=== PATIENT | female | born 1955 | race Caucasian/White ===

== ENCOUNTER → 2020-07-11 00:25 | Outpatient (CLI) | payer MEDICARE, SELFPAY ==
[2020-07-11 18:31] LABS: SARS-CoV-2 RNA PCR Negative
== END ==
PROVIDERS: Visit Provider Internal Medicine Gastroenterology
DX: Z01.812 Encounter for preprocedural laboratory examination (principal); Z20.822 Contact with and (suspected) exposure to COVID-19
CPT/HCPCS: C9803; U0003; U0005

== ENCOUNTER → 2020-07-11 08:33 | Outpatient (CLI) | payer MEDICARE, SELFPAY ==
--- NOTE | ~2020-07-11 | DEXA_ITS ---
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 Exam Date: July 11, 2020 Accession number: [id number] Bone Density: Region BMD T-score Z-score Classification AP Spine (L1-L4) 0.865 -1.7 0.1 Osteopenia Femoral Neck (Left) 0.805 -0.4 1.1 Normal Total Hip (Left) 0.777 -1.4 -0.1 Osteopenia Femoral Neck (Right) 0.702 -1.3 0.2 Osteopenia Total Hip (Right) 0.760 -1.5 -0.3 Osteopenia Total Hip Mean 0.769 -1.5 -0.2 Osteopenia World Health Organization criteria for BMD impression classify patients as: Normal (T-score at or above -1.0), Osteopenia (T-score between -1.0 and -2.5), or Osteoporosis (T-score at or below -2.5). 10-year Fracture Risk(1): Major Osteoporotic Fracture 8.1% Hip Fracture 0.7% Reported Risk Factors: [place] (), Neck BMD=0.702, BMI=31.7 (1) FRAX(R) Version 3.08. Fracture probability calculated for an untreated patient. Fracture probability may be lower if the patient has received treatment. Clinical Information Provided by Patient: Has used the following medications: Vitamin D, Calcium Patient maximum height was 65.5 Menopause Age: 55 No regular weight bearing exercise Does not regularly consume dairy products Drinks caffeinated beverages Onset of menses at age 12 Number of children 2 Missed period for more than 6 months in a row Impression: The patient has low bone mass, based on the Total Spine T-score. The patient has an estimated ten-year risk of hip fracture of 0.7% and an estimated ten-year risk of major fracture of 8.1%, based on the WHO FRAX algorithm. Discussion: BONE DENSITY IS LOW AT ONE OR MORE SKELETAL SITES. This patient's lowest T-score is low at one or more skeletal sites. It meets the World Health Organization's (WHO) criteria for ?low bone mass? (T-score between -1.0 and -2.5). The patient's 10-year risk of fracture as calculated by FRAX is less than the threshold where pharmacological therapy is recommended by the National Osteoporosis Foundation (NOF). However, all treatment decisions require clinical judgment and consideration of individual patient factors, including patient preferences, comorbidities, previous drug use, risk factors not captured in the FRAX model (e.g., frailty, falls, vitamin D deficiency, increased bone turnover, interval significant decline in bone density) and possible under or overestimation of fracture risk by FRAX. The patient should follow a healthful lifestyle (good nutrition with adequate calcium and vitamin D, and appropriate weight-bearing exercise). Follow-Up: Consider repeating this study
--- NOTE | ~2020-07-11 | XR_ITS ---
EXAMINATION: XR hip LT min 2V DATE: 07/11/2020 08:57 INDICATION: Left hip pain TECHNIQUE: Anteroposterior and frog-leg lateral views of the left hip were obtained. COMPARISON: 01/01/2012 FINDINGS: Alignment is normal. No fracture. Interval progression of now severe left hip osteoarthritis with ess entially [id number] apposition at the superior superolateral aspect of the joint space. There is zeng barticular lucency at the humeral head with remodeling of the superolateral aspect of the humeral hea d. Marginal osteophytes about the femoral head and acetabulum. Mild left sacroiliac osteoarthritis. IMPRESSION: 1. Interval progression of now severe left hip osteoarthritis. Reviewed, dictated and finalized at location A.
== END ==
PROVIDERS: PCP Family Medicine; Visit Provider Physician Assistant
DX: M16.12 Unilateral primary osteoarthritis, left hip (principal); Z13.820 Encounter for screening for osteoporosis; M85.88 Other specified disorders of bone density and structure, other site; M85.852 Other specified disorders of bone density and structure, left thigh; M85.851 Other specified disorders of bone density and structure, right thigh
CPT/HCPCS: 73502; 77080

== ENCOUNTER 2020-07-14 04:40 | Day surgery (SDC) | payer MEDICARE, SELFPAY ==
[2020-07-06 11:10] VITALS: BMI 31.5
[2020-07-14 10:24] VITALS: BP 160/110; PULSE 105; RESP 20; TEMP 36.8; O2SAT 97; BMI 31.4
[2020-07-14] MEDS: LACTATED RINGERS 1,000 ML 150 ML IV CONT (10:38)
--- NOTE | 2020-07-14 10:42 | P.PNAN_ITS ---
Anes - Initial Pre Proc Eval Procedure: Operation Date: 07/14/20 11:00 Proposed Procedures p Colonoscopy - Butch Gonzalez MD Date/Time: 07/14/20 10:42 Surgeon: Butch Gonzalez MD Pre Op Diagnosis: Positive Cologuard Patient Data Age: 65 Gender: F Height: 5 ft 5 in Weight: 85.5 kg Last Vital Signs Temp 98.2 F 07/14/20 10:24 Pulse 105 H 07/14/20 10:24 Resp 20 07/14/20 10:24 BP 160/110 H 07/14/20 10:24 Pulse Ox 97 07/14/20 10:24 Allergies Allergy/AdvReac Type Severity Reaction Status Date / Time pergolide Allergy Unknown intolerance Verified 06/06/20 13:44 Home Medications Medication Instructions Recorded Confirmed Type losartan 100 mg tablet 100 mg PO DAILY #90 tablet 06/06/20 07/06/20 Rx levothyroxine 100 mcg capsule 100 mcg PO DAILY #90 tablet 06/08/20 07/14/20 Rx Patient hx anesthesia problems: none Family hx anesthesia problems: none PMFSH Past Medical History Medical History (Updated 07/14/20 @ 10:42 by Ramos Dillon MD) Essential (primary) hypertension Hypothyroidism (acquired) Family History Family History Father Family history of cardiovascular disease Cerebrovascular accident Family history of glaucoma Family history of elevated blood lipids Mother Family history of dementia Family history of glaucoma Family history of rheumatoid arthritis Family history of Alzheimer's disease Sibling Family history of malignant neoplasm Social History Social History (Updated 06/06/20 @ 14:48 by Savanna Valera [facility]) Smoking packs per day: 1 Smoking cigarettes per day: 20.0 Years smoked: 5 Smoking pack-years: 5.00 Smoking status: Former smoker (quit smoking 35 years ago, smoked 5 years in total prior to quitting ) Tobacco type: cigarettes Alcohol intake: current Drinks per week: 2 Substance use type: does not use Living arrangements: with family Gender identity (if verbalized by the patient): Female Spiritual care concerns: No Anes - Eval Final PreProcedure Day of Procedure 07/14/20 10:42 Patient weight: obese Heart: regular rate and rhythm Lungs: clear to auscultation Airway: Mallampati scale class II Neurological: alert and oriented Last oral intake: >/= 8 hours ASA classification: III Emergent: no Anesthetic plan: proceed Anesthesia type and monitoring: general GIVS and standard monitoring Informed Consent: The patient's anesthetic plan and its attendant risks and benefits were discussed with the patient/family/POA. Questions were solicited and answers provided to the satisfaction of the patient/family/POA.
[2020-07-14 10:43] VITALS: BP 169/99
--- NOTE | 2020-07-14 11:03 | PM.HPGS ---
History of Present Illness History of Present Illness Consent: Risks, benefits, and alternatives have been discussed and questions answered. Patient agrees to proceed with procedure. Chief complaint: Positive Cologuard Narrative: Rosetta Christiansen is a 65 year old female referred for colon cancer screening. She had a colo guard testing was positive Review of Systems Review of Systems: All systems reviewed & are unremarkable except as noted in HPI and below PMFSH Past Medical History Medical History Essential (primary) hypertension Hypothyroidism (acquired) Family History Family History Father Family history of cardiovascular disease Cerebrovascular accident Family history of glaucoma Family history of elevated blood lipids Mother Family history of dementia Family history of glaucoma Family history of rheumatoid arthritis Family history of Alzheimer's disease Sibling Family history of malignant neoplasm Social History Social History Smoking packs per day: 1 Smoking cigarettes per day: 20.0 Years smoked: 5 Smoking pack-years: 5.00 Smoking status: Former smoker (quit smoking 35 years ago, smoked 5 years in total prior to quitting ) Tobacco type: cigarettes Alcohol intake: current Drinks per week: 2 Substance use type: does not use Living arrangements: with family Gender identity (if verbalized by the patient): Female Spiritual care concerns: No Meds Home Medications and Allergies Home Medications Medication Instructions Recorded Confirmed Type losartan 100 mg tablet 100 mg PO DAILY #90 tablet 06/06/20 07/06/20 Rx levothyroxine 100 mcg capsule 100 mcg PO DAILY #90 tablet 06/08/20 07/14/20 Rx Allergies Allergy/AdvReac Type Severity Reaction Status Date / Time pergolide Allergy Unknown intolerance Verified 06/06/20 13:44 Vital Signs Vital Signs - 24 hr 07/14/20 10:24 07/14/20 10:43 Temperature 36.8 C Pulse Rate 105 H Respiratory Rate 20 Blood Pressure 160/110 H 169/99 H Pulse Oximetry 97 Exam Const: General: alert Orientation/consciousness: patient oriented x3 Resp: Auscultation: clear to auscultation bilaterally Cardio: Rhythm: regular rhythm GI: GI Palp: Yes Soft to palpation and No Tenderness to palpation present (GI) Neuro: General: patient oriented x3 Assessment and Plan Assessment and plan (1) Colon cancer screening: Code(s): Z12.11 - Encounter for screening for malignant neoplasm of colon Status: Acute Assessment and Plan: Colonoscopy with possible biopsy or polypectomy or cautery or injection of substances.
[2020-07-14] MEDS: SIMETHICONE ORAL SUSPENSION 20 MG/0.3 ML 30 ML BOTTLE 0.6 ML IRRIGATION (11:17)
[2020-07-14 11:26] VITALS: BP 122/76; PULSE 85; RESP 16; O2SAT 97
[2020-07-14 11:36] VITALS: BP 143/93; PULSE 85; RESP 19; O2SAT 97
[2020-07-14 11:46] VITALS: BP 145/91; PULSE 88; RESP 20; O2SAT 99
== END 2020-07-14 12:25 | disposition home or self-care (01) ==
PROVIDERS: PCP Family Medicine; Visit Provider Internal Medicine Gastroenterology
PROC: 0DJD8ZZ Inspection of Lower Intestinal Tract, Via Natural or Artificial Opening Endoscopic (ICD-10-PCS; CPT 45378; principal; 2020-07-14 11:00)
DX: Z12.11 Encounter for screening for malignant neoplasm of colon (principal); D12.3 Benign neoplasm of transverse colon; R19.5 Other fecal abnormalities; I10 Essential (primary) hypertension; E03.9 Hypothyroidism, unspecified; Z87.891 Personal history of nicotine dependence; E66.9 Obesity, unspecified; Z68.31 Body mass index [BMI] 31.0-31.9, adult
CPT/HCPCS: 45380; 88305; J2001; J2704; J7120

== ENCOUNTER 2020-10-10 07:59 | Outpatient (CLI) | payer MEDICARE, SELFPAY ==
--- NOTE | 2020-10-10 09:17 | ECG_ITS ---
Measurements Intervals [place] Rate: 79 P: 39 DC: 169 QRS: -35 QRSD: 91 T: 10 QT: 357 QTc: 409 Interpretive Statements SINUS RHYTHM LEFT AXIS DEVIATION BORDERLINE R WAVE PROGRESSION, ANTERIOR LEADS INCOMPLETE RIGHT BUNDLE BRANCH BLOCK BORDERLINE T WAVE ABNORMALITY- INFERIOR LEADS BASELINE ARTIFACT- I, III, AVR, AVL BORDERLINE ECG Electronically Signed On 10-10-2020 9:38:32 CDT by Herman Olivares D.O.
[2020-10-10 10:27] LABS: Basophils Percent Auto 0.9 % (0.2-1.2); Eosinophils Absolute Auto 0.1 K/mm3 (0-0.3); Eosinophils Percent Auto 3.1 % (0-4.4); Hematocrit 44.3 % (37.0-47.0); Hemoglobin 14.7 g/dL (12.0-15.0); Immature Granulocyte Absolute 0.01 K/mm3 (0.00-0.031); Immature Granulocyte Percent A 0.2 % (0-0.5); Lymphocytes Absolute Auto 1.17 K/mm3 (0.9-3.2); Lymphocytes Percent Auto 26.1 % (18.3-44.2); Mean Corpuscular HGB Conc 33.2 g/dl (32-36); Mean Corpuscular Hemoglobin 32.1 pg (26-34); Mean Corpuscular Volume 96.7 fl (80-100); Mean Platelet Volume 9.6 fl (7.4-10.4); Monocytes Absolute Auto 0.4 K/mm3 (0.1-0.6); Monocytes Percent Auto 8.7 % (2.6-8.5); Neutrophils Absolute Auto 2.7 K/mm3 (1.3-6.7); Platelet Count Result 347 k/mm3 (150-375); Red Blood Count 4.58 M/mm3 (4.2-5.4); Red Cell Distribution Width 12.4 % (11.5-14.5); White Blood Count 4.5 K/mm3 (4.5-10.0)
[2020-10-10 10:42] LABS: Albumin Level 4.5 g/dL (3.5-5.1); Estimated Glomerular Filt Rate > 60; Glucose 96 mg/dL (65-105)
[2020-10-10 11:14] LABS: Urine Cotinine NEGATIVE
[2020-10-10 11:22] LABS: Hemoglobin A1C 5.4 % (<5.7)
== END 2020-10-10 08:00 | disposition home or self-care (01) ==
LOC: ANHSURGERY 08:04
PROVIDERS: PCP Family Medicine; Visit Provider Orthopaedic Surgery
DX: M16.12 Unilateral primary osteoarthritis, left hip (principal); Z01.818 Encounter for other preprocedural examination; I45.10 Unspecified right bundle-branch block
CPT/HCPCS: 80307; 82040; 82565; 82947; 83036; 85025; 86850; 86900; 86901; 87081; 93005

== ENCOUNTER 2020-10-23 00:22 | Day surgery (SDC) | payer MEDICARE, SELFPAY ==
[2020-10-10 08:24] VITALS: BP 148/103; PULSE 75; RESP 18; TEMP 36.4; O2SAT 96
[2020-10-23] VITALS (16 sets, daily range): BP systolic 127–170; BP diastolic 81–105; PULSE 69–97; RESP 10–20; TEMP 36.1–36.8; O2SAT 94–100
--- NOTE | ~2020-10-23 | XR_ITS ---
EXAMINATION: XR surgery orthopedic DATE: 10/23/2020 10:34 INDICATION: Left hip osteoarthritis. Total left hip arthroplasty, anterior approach. TECHNIQUE: A single intraoperative fluoroscopic view of the left hip was obtained. I was not present. Fluoroscopy exposure time was 21 seconds. COMPARISON: Left hip radiographs 10/12/2020 FINDINGS: There is a total left hip arthroplasty in near-anatomic alignment. IMPRESSION: 1. Total left hip arthroplasty in near-anatomic alignment. Reviewed, dictated and finalized at location A.
--- NOTE | ~2020-10-23 | XR_ITS ---
EXAMINATION: XR hip LT min 2V DATE: 10/23/2020 11:12 INDICATION: EXAMINATION: XR hip LT min 2V DATE: 10/23/2020 11:12 INDICATION: Postoperative evaluation following left total hip arthroplasty TECHNIQUE: Anteroposterior and lateral views of the left hip were obtained. COMPARISON: Left hip radiographs dated 10/12/2020 FINDINGS: Interval placement of a left total hip arthroplasty which appears well seated in near anatomic alignm ent. Expected subcutaneous gas in the postoperative bed. No fractures identified. IMPRESSION: 1. Left total hip arthroplasty, negative for postoperative purposes. Reviewed, dictated and finalized at location A.
[2020-10-23] MEDS: ACETAMINOPHEN 500 MG TABLET 1000 MG PO ×3 (06:06→22:52)
[2020-10-23] MEDS: LACTATED RINGERS 1,000 ML 30 ML IV CONT ×2 (06:30→10:56)
[2020-10-23] MEDS: TRANEXAMIC ACID 1,000MG/ISO100 1,000 MG/100 ML BAG 200 MG IVPB (06:42)
--- NOTE | 2020-10-23 06:50 | SUR.PREOP ---
0650-PT AWARE OF POTENTIAL DELAY GOING FROM PACU TO FLOOR ROOM R/T BED/ROOM AVAILABILITY.
--- NOTE | 2020-10-23 07:10 | WPDANESEPPF ---
Anes - Initial Pre Proc Eval Procedure: Operation Date: 10/23/20 07:30 Proposed Procedures p Left Total Hip Arthroplasty, Anterior Approach - Ad Weston MD Date/Time: 10/23/20 07:10 Surgeon: Ad Weston MD Pre Op Diagnosis: OA left hip Patient Data Age: 65 Gender: F Height: 1.66 m Weight: 82 kg Last Vital Signs Temp 36.8 C 10/23/20 06:12 Pulse 95 10/23/20 06:12 Resp 20 10/23/20 06:12 BP 147/97 H 10/23/20 06:12 Pulse Ox 99 10/23/20 06:12 Allergies Allergy/AdvReac Type Severity Reaction Status Date / Time pergolide AdvReac Unknown Nausea Verified 10/23/20 06:07 Home Medications Medication Instructions Recorded Confirmed Type calcium 600 mg PO DAILY 10/10/20 10/23/20 History cholecalciferol (vitamin D3) 25 mcg PO BID 10/10/20 10/23/20 History levothyroxine 88 mcg PO QAM 10/10/20 10/23/20 History losartan 100 mg PO HS 10/10/20 10/23/20 History multivitamin [Multiple Vitamin] 1 tablet PO DAILY 10/10/20 10/23/20 History latanoprost 0.005 % eye drops 1 drp EACH EYE DAILY 10/12/20 10/23/20 History rivaroxaban 10 mg tablet 10 mg PO DAILY #14 tablet 10/12/20 10/23/20 Rx ECG: Date of Service: 10/10/20 Procedure(s): CA 12 lead EKG Accession Number(s): [id number] cc: ~ Measurements Intervals [place] Rate: 79 P: 39 VA: 169 QRS: -35 QRSD: 91 T: 10 QT: 357 QTc: 409 Interpretive Statements SINUS RHYTHM LEFT AXIS DEVIATION BORDERLINE R WAVE PROGRESSION, ANTERIOR LEADS INCOMPLETE RIGHT BUNDLE BRANCH BLOCK BORDERLINE T WAVE ABNORMALITY- INFERIOR LEADS BASELINE ARTIFACT- I, III, AVR, AVL BORDERLINE ECG Electronically Signed On 10-10-2020 9:38:32 CDT by Herman Olivares D.O. Patient hx anesthesia problems: none Family hx anesthesia problems: none PMFSH Past Medical History Medical History Allergies Arthritis Essential (primary) hypertension Hypothyroidism (acquired) Primary osteoarthritis of left hip Surgical History Surgical History History of root canal procedure 2020 for dental abscess Family History Family History Father Family history of cardiovascular disease Cerebrovascular accident Family history of glaucoma Family history of elevated blood lipids Mother Family history of dementia Family history of glaucoma Family history of rheumatoid arthritis Family history of Alzheimer's disease Sibling Family history of malignant neoplasm Social History Social History Smoking packs per day: 1 Smoking cigarettes per day: 20.0 Years smoked: 9 Smoking pack-years: 9.00 Smoking status: Former smoker Tobacco type: cigarettes Smoking end date: 10/13/79 Alcohol intake: current Drinks per week: 2 Alcohol use details: wine Substance use: never Substance use type: does not use Living arrangements: alone Gender identity (if verbalized by the patient): Female Spiritual care concerns: No Anes - Eval Final PreProcedure Day of Procedure 10/23/20 07:10 Patient weight: overweight Heart: regular rate and rhythm Lungs: clear to auscultation and normal air movement Airway: Mallampati scale class II Neurological: alert and oriented Last oral intake: >/= 8 hours ASA classification: II Emergent: no Anesthetic plan: proceed Anesthesia type and monitoring: general ETT Informed Consent: The patient's anesthetic plan and its attendant risks and benefits were discussed with the patient/family/POA. Questions were solicited and answ
--- NOTE | 2020-10-23 07:17 | WPDHPUPDATE1 ---
History and Physical Update Update Date/Time: 10/23/20 07:17 History and Physical has been reviewed, including an updated exam of the patient. There are NO changes in the patient's condition. Risks, benefits, and alternatives have been discussed and questions answered. Patient agrees to proceed with procedure.
[2020-10-23] MEDS: ceFAZolin 2 GM/D5W 50 ML 2 GM/50 ML BAG IVPB ×3 (07:42→23:55)
[2020-10-23] MEDS: BUPIVACAINE/EPINEPHRINE 0.25% 10 ML VIAL 40 ML INFILTRATE (08:25)
[2020-10-23] MEDS: ceFAZolin SODIUM 1 GM VIAL 2 GM IV PUSH (10:18)
--- NOTE | 2020-10-23 11:01 | P.OP_ITS ---
Procedure Note - Detailed Date of Procedure 10/23/20 Pre-op Diagnosis OA left hip Post-op Diagnosis same Procedure Performed left total hip replacement through an anterior approach Surgeon Ad Weston MD [employer] Professor Lion Anesthesia MAC and spinal Indications see H&P Findings see operative note Description of Procedure The patient was identified, proper side identified, and then taken to the operating room. After a spinal anesthetic was administered, she was then transferred over to the [place] table positioning supine in the usual manner for an anterior hip procedure. Positioning was assessed fluoroscopically after which the left hip and thigh was prepped and draped in the usual sterile fashion. 10 cc of the 0.25% Marcaine and epinephrine solution was injected into the zeng bcutaneous tissue over the TFL muscle belly. Longitudinal incision was made over the muscle belly. Subcutaneous tissue was sharply dissected down to the TFL fascia which was incised in line with the fibers the TFL. The TFL was retracted laterally and the rectus femoris medially. The rectus fascia was divided. The branches of the anterior femoral circumflex artery were identified and cauterized allowing for access to the hip capsule. Pericapsular fatty tissue was removed. The capsule was divided in an inverted T-fashion. The neck cut was made one fingerbreadth above the level of the lesser trochanter. Head fragment was removed and the acetabulum cleared of debris. Acetabulum was sequentially reamed under fluoroscopic visualization up to 51 mm. A 52 G7 cup was inserted under fluoroscopic visualization in approximately 40? of abduction and 15? of anteversion following the patient's anatomy. It was further secured with a single screw and then the liner for the size 36 head was placed. The femur was then delivered up into the wound with the appropriate releases. The proximal femur was prepared for the 12 echo micro plasty high offset stem and a trial reduction was undertaken. Overall alignment was assessed fluoroscopically in the AP and lateral views noting it to be satisfactory. Trial components were removed. The wound was irrigated with pulsatile lavage. The real size 12 high offset micro plasty stem was then seated. This construct with a 36, minus three head gave excellent pentecostal of leg lengths and stability so the real 36- three ceramic head was attached to the neck of the femoral component after it had been cleaned and dried. Hip was again reduced and stability assessed, and it was noted to be stable. After final lavage of the wound, the periarticular tissues were injected with an additional 50 cc of the arthroplasty solution. 1 g of tranexamic acid was left in the wound. The capsule was reapproximated with #2 Vicryl suture, the TFL fascia with 0 looped PDS suture, the subcu with two of strata fix in the deeper layers and two of strata fix subcuticular stitch. Tissue adhesive was used for the skin. Sterile dressing was applied. She tolerated the procedure well. She was transferred back to a bed and taken to recovery area in stable condition. There were no known intraoperative complications. Estimated blood loss was 300 cc. One hundred twenty-five given back via Cell Saver. She received perioperative antibiotics.
--- NOTE | 2020-10-23 11:19 | PM.DS ---
DS: Admitting Diagnosis Admitting Diagnosis Admitting Diagnosis: osteoarthritis left hip DS: Discharge Diagnosis Discharge Diagnosis (1) Primary osteoarthritis of left hip: Code(s): M16.12 - Unilateral primary osteoarthritis, left hip Status: Resolved Assessment and Plan: Plan discharge home today with follow-up in two weeks. Instructions reviewed in detail. DS: Summary Hospital Course Reason for hospitalization: Recovery after outpatient procedure. Hospital Course: Following the patient's surgery she was admitted to the floor, began her therapy, made good progress and is being discharged home. Status at Discharge Functional status at discharge: uses cane/walker Overall status at discharge: patient is not back to baseline Time Spent with Patient Time attestation: Total time spent providing and/or coordinating discharge services: Exam Const: General: cooperative, no acute distress and alert Nutritional Appearance: other Orientation/consciousness: patient oriented x3 Limitations: no limitations HENMT: Head: normal to inspection Ears: hearing grossly normal bilaterally Face and sinus: face symmetric Mouth: Yes moist mucous membranes Teeth and gingiva: fair dentition Eyes: Alignment and Position: alignment normal and position normal Sclera: sclerae normal Neck: Neck: normal visual inspection and nontender Chest: Chest palpation & inspection: normal inspection of the chest Resp: Effort & Inspection: normal respiratory effort and able to speak in complete sentences GI: Inspection: other ( Nontender, nondistended) Skin: General skin exam: normal color Rashes: no rashes Neuro: General: patient oriented x3 Cognition (Neuro): normal cognition Speech: normal speech Gait exam (Neuro): Other gait observations present Extrem: General: normal to inspection and other Other: Exam of the left hip wound shows that it is well apposed and dry. Slight bruising noted around the incision with minimal swelling. Neurovascular status left lower extremity unremarkable. Calves negative. Psych: Appearance: grossly normal Mental Status: mental status grossly normal Discharge Plan Discharge Patient Disposition: Home, Self-Care Discharge Instructions: 3 times daily for 20 minutes each time, reclining in bed with ice packs over the incision and a pillow underneath the calf of the affected leg, not under the knee. Your wound is glued so it is okay to get into the shower and get the wound wet in two days. Be sure to read through all the information that came from a my office and the hospital. Most of the answers you will need can be found that material. Call the office with any questions that you cannot find answers to, or concerns you may have. After the Xarelto is completed, start taking one coated 325 mg aspirin daily and do this for four more weeks. Please call [facility] at as soon as possible to verify your follow-up appointment to be seen in 2 weeks. Also, call the office with any orthopedic/surgical related questions prior to follow-up. Be sure to get up and move around several times daily but do not overdo it. Take the arthritis formula Tylenol 650 mg tablet on an 8 hour schedule. A good 8 hour schedule is: 6:00 a.m., 2:00 p.m., 10:00 p.m. you may take the prescribed pain medication along with the Tylenol; it is not to be taken instead of the Tylenol. I would like for you to take the Tylenol on a schedule for 2-3 weeks. Take the Celebrex every 12 hours for one week. It is okay to take this with the Xarelto. Patient Instructions: Pain Management (DC), Precautions after Total Joint Replacement Surgery (ED), Precautions after Total Joint Replacement Surgery (DC) Stand Alone Forms: General Discharge Instructions Discharge Medications: New oxycodone 5 mg Tablet 5 mg PO Q4HR PRN (Reason: Pain Rated 7-10) Qty: 40 RF: 0 ondansetron HCl [Zofran] 4 mg tablet 4 mg PO
[2020-10-23] MEDS: MEPERIDINE HCL INJ (*CRX) 50 MG/ML AMPUL 25 MG IV PUSH (11:52)
--- NOTE | 2020-10-23 11:56 | SUR.PHASEI ---
Patient keeps shivering and says her shoulder is hurting but doesn't want any pain medicine at this time. RN gave 25mg of Demerol. Patient came in with her BP 147/97 pre-op.
--- NOTE | 2020-10-23 12:30 | ADMGEN ---
This patient, Rosetta Christiansen, was admitted to Medical Room 243-01. Patient/family oriented to hospital policies and general routines including ID bracelet, bed and alarms, visiting hours, pain management, procedures, bathroom and other care routines, personal items, smoking policy, room service/diet, and visiting hours. Information on how to activate the Rapid Response Team has been discussed. Patient/Family are encouraged to report perceived risks to care and to ask questions if they do not understand what they are told or what they should do.
[2020-10-23] MEDS: KETOROLAC 15 MG/ML VIAL (*BKC) IV PUSH ×3 (13:38→23:54)
[2020-10-23] MEDS: oxyCODONE HCL (*CRX) 5 MG TAB IR PO ×2 (16:23→20:01)
[2020-10-23] MEDS: CHOLECALCIFEROL 1,000 UNITS TABLET 1000 UNITS PO (17:46)
[2020-10-23] MEDS: LOSARTAN POTASSIUM 100 MG TABLET PO (20:01)
[2020-10-23] MEDS: FAMOTIDINE 20 MG TABLET PO (20:01)
[2020-10-23] MEDS: LATANOPROST 0.005% OP SOLN 2.5 ML BTL 1 DROP EACH EYE (20:01)
[2020-10-24] MEDS: oxyCODONE HCL (*CRX) 5 MG TAB IR PO ×3 (00:33→08:58)
[2020-10-24 02:04] VITALS: BP 148/85; PULSE 81; RESP 18; TEMP 36.3; O2SAT 96
[2020-10-24] MEDS: ACETAMINOPHEN 500 MG TABLET 1000 MG PO ×2 (05:39→15:23)
[2020-10-24] MEDS: LEVOTHYROXINE SODIUM 88 MCG TABLET PO (05:40)
[2020-10-24 06:14] VITALS: BP 146/84; PULSE 72; RESP 18; TEMP 36.3; O2SAT 96
[2020-10-24] MEDS: CHOLECALCIFEROL 1,000 UNITS TABLET 1000 UNITS PO (08:58)
[2020-10-24] MEDS: DOCUSATE SODIUM 100 MG CAPSULE PO (08:58)
[2020-10-24] MEDS: FAMOTIDINE 20 MG TABLET PO (08:58)
[2020-10-24] MEDS: RIVAROXABAN 10 MG TABLET PO (08:58)
[2020-10-24] MEDS: CALCIUM CARBONATE (OSCAL) 500 MG TABLET PO (08:58)
[2020-10-24] MEDS: ceFAZolin 2 GM/D5W 50 ML 2 GM/50 ML BAG IVPB (08:58)
[2020-10-24] MEDS: MULTIVITAMINS THERAPEUTIC TAB (*BKC) 1 TABLET PO (08:58)
[2020-10-24 10:00] VITALS: BP 156/96; PULSE 83; RESP 18; TEMP 36.3; O2SAT 99
[2020-10-24] MEDS: traMADol HCL (*CRX) 50 MG TABLET PO (15:23)
== END 2020-10-24 15:46 | disposition home or self-care (01) ==
LOC: ANHSURGERY 11:17 → ANH2MED 12:35
PROVIDERS: PCP Family Medicine; Visit Provider Orthopaedic Surgery
PROC: (CPT 27130; principal; 2020-10-23 07:30)
DX: M16.12 Unilateral primary osteoarthritis, left hip (principal); I10 Essential (primary) hypertension; E03.9 Hypothyroidism, unspecified; Z87.891 Personal history of nicotine dependence; Z79.01 Long term (current) use of anticoagulants; I45.10 Unspecified right bundle-branch block
CPT/HCPCS: 27130; 73502; 97110; 97116; 97161; 97165; 97530; A9270; C1713; C1776; J0171; J0690; J1100; J1170; J1885; J2175; J2250; J2704; J3010; J7120

== ENCOUNTER → 2021-09-13 13:27 | Outpatient (CLI) | payer MEDICARE, SELFPAY ==
--- NOTE | ~2021-09-13 | XR_ITS ---
EXAMINATION: XR shoulder RT min 2V DATE: 09/13/2021 14:18 INDICATION: Right shoulder pain. TECHNIQUE: 4 views of right shoulder were obtained. COMPARISON: Right shoulder radiographs 01/01/2012 FINDINGS: Bone alignment is normal. No fracture. There is severe osteoarthritis of glenohumeral joint and mild osteoarthritis of acromioclavicular joint. There are loose bodies in the biceps tendon quesada th in bicipital groove. IMPRESSION: 1. Severe glenohumeral joint osteoarthritis with loose bodies in the biceps tendon sheath in bicipita l groove. Reviewed, dictated and finalized at location A. IMPRESSION: 1. Severe glenohumeral joint osteoarthritis with loose bodies in the biceps ten don sheath in bicipital groove.
--- NOTE | ~2021-09-13 | MM_ITS ---
EXAMINATION: MM screening matheus BI w nicolette HISTORY: Screening mammogram TECHNIQUE: Craniocaudal and mediolateral oblique 3-D tomosynthesis images were obtained and synthetic 2-D images were generated. CAD analysis was submitted and interpreted. COMPARISON: 01/27/2018, 04/09/2012 bilateral screening mammogram examinations BREAST PARENCHYMAL COMPOSITION: There are scattered areas of fibroglandular density. FINDINGS: Stable mild fibroglandular asymmetry. Scattered occasional benign calcifications. There is no evidence of suspicious mass, calcification, or architectural distortion to suggest malignancy in e ither breast. There has been no suspicious interval change. IMPRESSION: 1. No mammographic evidence of malignancy. 2. Recommend routine screening mammography in one year. BI-RADS Category 2: Benign finding(s). Reviewed, dictated and finalized at location A.
== END ==
PROVIDERS: PCP Family Medicine; Visit Provider Physician Assistant
DX: Z12.31 Encounter for screening mammogram for malignant neoplasm of breast (principal); M19.011 Primary osteoarthritis, right shoulder
CPT/HCPCS: 73030; 77063; 77067

== ENCOUNTER 2022-06-17 14:20 | Outpatient (CLI) | payer MEDICARE, SELFPAY ==
--- NOTE | ~2022-06-17 | CT_ITS ---
EXAMINATION: CT shoulder RT wo con DATE: 06/17/2022 14:52 INDICATION: Right glenohumeral osteoarthritis with chronic right shoulder pain for preoperative plann ing. TECHNIQUE: High resolution computed tomography (CT) of the right shoulder was performed without intra venous contrast. Additional sagittal and coronal reconstructions were performed. Automated exposure c ontrol and iterative reconstruction technique were employed. The dose-length product was 426.86 mGy-c m. COMPARISON: Right shoulder radiographs dated 06/10/2022 FINDINGS: Alignment is normal. No fracture. The acromion undersurface is curved in morphology (type II). Severe right glenohumeral osteoarthritis with remodeling of the glenoid most prominent posteriorly resultin g in 15 degrees glenoid retroversion. There is also remodeling of the medial aspect of the humeral he ad with peripheral large marginal osteophytes. Large loose osteochondral body versus heterotopic ossi fication along the posterior superior rim of the glenoid. Small right glenohumeral joint effusion wit h fluid along with several additional loose osteochondral bodies in the long head biceps tendon sheat h. Moderate to severe thoracic and lower cervical spondylosis. 2-3 mm anterolisthesis C7 with respect to C6 and T1. Chronic appearing mild anterior wedging at T7. Visual is portions of the right lung is clear. No pathologically enlarged lymphadenopathy at the right axilla, right hilum or visualized med iastinum. IMPRESSION: 1. Severe right glenohumeral osteoarthritis. Reviewed, dictated and finalized at location A. [employer] [employer]
== END 2022-06-17 14:21 | disposition home or self-care (01) ==
PROVIDERS: PCP Physician Assistant; Visit Provider Orthopaedic Surgery
DX: M19.011 Primary osteoarthritis, right shoulder (principal)
CPT/HCPCS: 73200

== ENCOUNTER 2022-08-14 13:36 | Outpatient (CLI) | payer MEDICARE, SELFPAY ==
--- NOTE | 2022-08-14 14:35 | ECG_ITS ---
Measurements Intervals [place] Rate: 82 P: 35 SC: 170 QRS: -34 QRSD: 98 T: 13 QT: 353 QTc: 414 Interpretive Statements SINUS RHYTHM LEFT AXIS DEVIATION INCOMPLETE RIGHT BUNDLE BRANCH BLOCK PATTERN CONSISTENT WITH PULMONARY DISEASE BORDERLINE T WAVE ABNORMALITY- INFERIOR LEADS COMPARED TO ECG 10/10/2020 09:30:05 NO SIGNIFICANT CHANGES Electronically Signed On 08-14-2022 15:06:48 CDT by Herman Olivares D.O.
[2022-08-14 14:55] LABS: Basophils Absolute Auto 0.1 K/mm3 (0.0-0.1); Basophils Percent Auto 0.7 % (0.2-1.2); Eosinophils Absolute Auto 0.2 K/mm3 (0-0.3); Eosinophils Percent Auto 2.7 % (0-4.4); Hematocrit 42.7 % (37.0-47.0); Hemoglobin 14.5 g/dL (12.0-15.0); Immature Granulocyte Absolute 0.04 K/mm3 (0.00-0.031); Immature Granulocyte Percent A 0.5 % (0-0.5); Lymphocytes Absolute Auto 2.28 K/mm3 (0.9-3.2); Lymphocytes Percent Auto 30.2 % (18.3-44.2); Mean Corpuscular Hemoglobin 32.5 pg (26-34); Mean Corpuscular Volume 95.7 fl (80-100); Mean Platelet Volume 8.5 fl (7.4-10.4); Monocytes Absolute Auto 0.6 K/mm3 (0.1-0.6); Monocytes Percent Auto 8.2 % (2.6-8.5); Neutrophils Absolute Auto 4.4 K/mm3 (1.3-6.7); Neutrophils Percent Auto 57.7 % (45.5-73.1); Platelet Count Result 321 k/mm3 (150-375); Red Blood Count 4.46 M/mm3 (4.2-5.4); Red Cell Distribution Width 12.4 % (11.5-14.5); White Blood Count 7.5 K/mm3 (4.5-10.0)
== END 2022-08-14 13:37 | disposition home or self-care (01) ==
LOC: ANHSURGERY 13:41
PROVIDERS: PCP Internal Medicine; Visit Provider Orthopaedic Surgery
DX: M19.011 Primary osteoarthritis, right shoulder (principal); I10 Essential (primary) hypertension; Z01.818 Encounter for other preprocedural examination; I45.10 Unspecified right bundle-branch block
CPT/HCPCS: 36415; 85025; 87081; 93005

== ENCOUNTER 2022-09-19 09:41 | Outpatient (CLI) | payer MEDICARE, SELFPAY ==
--- NOTE | 2022-09-19 09:45 | ECHO_ITS ---
Patient Info Name: Rosetta Christiansen Age: 67 years : 1955 Gender: Female Ht: 65 in Wt: 180 lbs BSA: 1.96 m2 HR: 91 bpm BP: 171 / 108 mmHg Technical Quality: Good Exam Date: 09/19/2022 9:54 AM Exam Location: [facility] Patient Status: Outpatient Admit Date: 09/19/2022 Staff Ordering Physician: Estefani Ambrocio NP Suspender Cutter: Jo Ann Almaguer RDCS Attending Provider: Estefani Ambrocio NP Referring Physician: Cristóbal COLEMAN; Exam Type: CA echo doppler color flow Study Info Indications I10 - Essential (primary) hypertension Complete two-dimensional, color flow and Doppler transthoracic echocardiogram is performed. Summary 1. Complete two-dimensional, color flow and Doppler transthoracic echocardiogram is performed. 2. Left ventricular chamber dimension is normal. 3. Ventricular septum is sigmoid shaped. No LVOT obstruction. 4. Left ventricular systolic function is normal, estimated at 60-65%. 5. The left ventricular diastolic function is grade I diastolic dysfunction. 6. E/e' 15 is elevated. 7. Global longitudinal strain is normal at -19.8%. 8. Left atrial chamber dimension is mildly enlarged. 9. There is mild aortic valve sclerosis. 10. There is trace aortic valve regurgitation. 11. The mitral valve has mildly calcified annulus. 12. No pulmonary hypertension, estimated pulmonary arterial systolic pressure is 33 mmHg. Left Ventricle E/e' 15 is elevated. Global longitudinal strain is normal at -19.8%. Ventricular septum is sigmoid shaped. No LVOT obstruction. Left ventricular chamber dimension is normal. Left ventricular systolic function is normal, estimated at 60-65%. The left ventricular diastolic function is grade I diastolic dysfunction. Right Ventricle Right ventricular systolic function is normal and with normal TAPSE 1.8 cm. Right ventricular chamber dimension is normal. Left Atria Left atrial chamber dimension is mildly enlarged. Right Atria Right atrial chamber dimension is normal. Aortic Valve The aortic valve is trileaflet. There is mild aortic valve sclerosis. There is no aortic valve stenosis. There is trace aortic valve regurgitation. Pulmonic Valve There is no pulmonic regurgitation. Mitral Valve The mitral valve has mildly calcified annulus. There is no mitral valve stenosis. There is no mitral valve regurgitation. Tricuspid Valve There is no tricuspid valve regurgitation. No pulmonary hypertension, estimated pulmonary arterial systolic pressure is 33 mmHg. Pericardium/Pleural There is no pericardial effusion. Inferior Vena Cava Normal inferior vena cava with >50% collapse upon inspiration consistent with normal right atrial pressure, 5 mmHg. Aorta The aortic root size at the sinus of Valsalva is normal. Left Ventricular Outflow Tract Name Value Normal LVOT 2D LVOT Diameter 2.0 cm LVOT Doppler LVOT Peak Gradient 5 mmHg LVOT Mean Gradient 3 mmHg LVOT VTI 24 cm LVOT VTI/AV VTI Ratio 0.9 LVOT Stroke Volume 76 ml LVOT CO 6.0 l/min LVOT CI
--- NOTE | 2022-09-19 09:46 | EST_ITS ---
Patient Info Name: Rosetta Christiansen Age: 67 years : 1955 Gender: Female Ht: 65 in Wt: 180 lbs BSA: 1.96 m2 HR: 86 bpm BP: 165 / 103 mmHg Heart Rhythm: Sinus Rhythm Exam Date: 09/19/2022 10:40 AM Exam Location: [facility] Patient Status: Outpatient Admit Date: 09/19/2022 Staff Ordering Physician: Estefani Ambrocio NP Attending Provider: Estefani Ambrocio NP Exercise Technologist: Cadence Morgan CT Exercise Physician: Herman Olivares DO Exam Type: CA stress test treadmill Study Info Indications Z01.810 - Encounter for preprocedural cardiovascular examination I10 - Essential (primary) hypertension A treadmill exercise stress test was performed. Summary 1. 1. Negative Moi exercise stress test for ischemic ST changes by ECG criteria. 2. 2. Good functional capacity, achieving 7 METs of workload. 3. 3. Baseline hypertension. 4. 4. Appropriate HR response to exercise. 5. 5. Appropriate HR recovery at 1 minute post exercise. 6. 6. No imaging with stress testing. 7. 7. Patient informed of the above results. Protocol: Moi Stress ECG Details Stage: REST Duration (min): 2 min : 51 sec Speed (mph): 0.0 Grade (%): 0 HR (bpm): 85 SBP (mmHg): 165 DBP (mmHg): 103 METS: --- Stage: REST Duration (min): 14 min : 38 sec Speed (mph): 0.0 Grade (%): 0 HR (bpm): 89 SBP (mmHg): 165 DBP (mmHg): 103 METS: --- Stage: STAGE 1 Duration (min): 1 min : 0 sec Speed (mph): 1.7 Grade (%): 10 HR (bpm): 109 SBP (mmHg): 165 DBP (mmHg): 103 METS: --- Stage: STAGE 1 Duration (min): 2 min : 0 sec Speed (mph): 1.7 Grade (%): 10 HR (bpm): 111 SBP (mmHg): 165 DBP (mmHg): 103 METS: --- Stage: STAGE 1 Duration (min): 3 min : 0 sec Speed (mph): 1.7 Grade (%): 10 HR (bpm): 115 SBP (mmHg): 175 DBP (mmHg): 91 METS: --- Stage: STAGE 2 Duration (min): 1 min : 0 sec Speed (mph): 2.5 Grade (%): 12 HR (bpm): 120 SBP (mmHg): 175 DBP (mmHg): 91 METS: --- Stage: STAGE 2 Duration (min): 2 min : 0 sec Speed (mph): 2.5 Grade (%): 12 HR (bpm): 129 SBP (mmHg): 175 DBP (mmHg): 94 METS: --- Stage: STAGE 2 Duration (min): 3 min : 0 sec Speed (mph): 2.5 Grade (%): 12 HR (bpm): 131 SBP (mmHg): 175 DBP (mmHg): 94 METS: --- Stage: STAGE 3 Duration (min): 0 min : 8 sec Speed (mph): 3.4 Grade (%): 14 HR (bpm): 129 SBP (mmHg): 175 DBP (mmHg): 94 METS: --- Stage: RECOVERY Duration (min): 0 min : 51 sec Speed (mph): 0.0 Grade (%): 0 HR (bpm): 115 SBP (mmHg): 173 DBP (mmHg): 94 METS: --- Stage: RECOVERY Duration (min): 1 min : 51 sec Speed (mph): 0.0 Grade (%): 0 HR (bpm): 103 SBP (mmHg): 173 DBP (mmHg): 94 METS: --- Stage: RECOVERY Duration (min): 2 min : 51 sec Speed (mph): 0.0 Grade (%): 0 HR (bpm): 101 SBP (mmHg): 159 DBP (mmHg): 95 METS: --- Stage: RECOVERY Duration (min): 2
== END 2022-09-19 09:42 | disposition home or self-care (01) ==
LOC: ANHCARD 09:41
PROVIDERS: PCP Internal Medicine; Visit Provider Nurse Practitioner
DX: E78.2 Mixed hyperlipidemia (principal); I10 Essential (primary) hypertension; Z01.810 Encounter for preprocedural cardiovascular examination
CPT/HCPCS: 93017; 93306

== ENCOUNTER 2023-01-28 09:28 | Outpatient (CLI) | payer MEDICARE, SELFPAY ==
[2023-01-28 09:53] LABS: Basophils Percent Auto 0.5 % (0.2-1.2); Eosinophils Absolute Auto 0.1 K/mm3 (0-0.3); Hematocrit 45.2 % (37.0-47.0); Immature Granulocyte Absolute 0.03 K/mm3 (0.00-0.031); Immature Granulocyte Percent A 0.3 % (0-0.5); Lymphocytes Absolute Auto 1.72 K/mm3 (0.9-3.2); Lymphocytes Percent Auto 19.5 % (18.3-44.2); Mean Corpuscular HGB Conc 33.2 g/dl (32-36); Mean Corpuscular Hemoglobin 31.4 pg (26-34); Mean Corpuscular Volume 94.8 fl (80-100); Mean Platelet Volume 8.5 fl (7.4-10.4); Monocytes Absolute Auto 0.4 K/mm3 (0.1-0.6); Monocytes Percent Auto 4.1 % (2.6-8.5); Neutrophils Absolute Auto 6.6 K/mm3 (1.3-6.7); Neutrophils Percent Auto 74.6 % (45.5-73.1); Platelet Count Result 365 k/mm3 (150-375); Red Blood Count 4.77 M/mm3 (4.2-5.4); Red Cell Distribution Width 12.5 % (11.5-14.5); White Blood Count 8.8 K/mm3 (4.5-10.0)
== END 2023-01-28 09:29 | disposition home or self-care (01) ==
LOC: ANHSURGERY 09:34
PROVIDERS: PCP Internal Medicine; Visit Provider Orthopaedic Surgery
DX: M19.011 Primary osteoarthritis, right shoulder (principal); Z01.818 Encounter for other preprocedural examination
CPT/HCPCS: 36415; 85025; 86850; 86900; 86901; 87081

== ENCOUNTER 2023-02-03 01:42 | Day surgery (SDC) | payer MEDICARE, SELFPAY ==
[2022-08-14 13:46] VITALS: BMI 31.4
--- NOTE | 2022-08-14 14:06 | PC.NURSE ---
Report to the Outpatient Waiting Room, entrance under the green pavilion located off [facility], at time __0600 on date _09/10/22 . Planned Procedure Time: _0730 . Time changes happen often and if your time is changed the preop area will call you the afternoon before. - You and your visitor will be asked to self-screen and do not enter if you have any COVID symptoms. - A mask is optional within the hospital at this time. Patients may have clear liquids (water, carbonated beverages, clear teas, apple juice) until 3 hours prior to surgery with a maximum of 20 ounces. - No food from midnight until time of surgery - Infants may have breast milk until 4 hours before surgery, infant formula 6 hours prior to surgery. - Children will be allowed to drink immediately following surgery. If applicable, please bring a bottle or sippy cup to assist with drinking. Juice, water, soda, and popsicles are readily available. For infants on formula, please bring formula the day of surgery. Pacifiers are allowed. Take the following medications with a SIP of water the morning of surgery: ___LEVOTHYROXINE, TIMOLOL EYE DROP DO NOT STOP ANY OF YOUR OTHER PRESCRIPTION MEDICATIONS PRIOR TO SURGERY ?EXCEPT THE FOLLOWING Medications to discontinue per physician ALL VITAMINS/SUPPLEMENTS 3 DAYS PRE OP.LAST DOSE 09/06/22 Please no make-up, nail korean, hairspray, perfume, deodorant, or body powder the day of surgery. No jewelry (including any body piercings) or valuables the day of surgery, leave them at home. Please take a shower or bath the night before, or the morning of, surgery with an antibacterial soap. Wear comfortable, loose fitting clothing. Children are encouraged to wear pajamas. - Jewelry must be removed prior to entering the operating room. Rings and piercings that are not removed may be cut off. - The hospital will not accept responsibility for valuables. - Please leave all valuables, including medications, at home the day of surgery. If you are going home after surgery, a licensed trailer driver must drive you home. - NO public transportation without another adult if you receive anesthesia. - We recommend that an adult stay with you for 24 hours following discharge. - We also recommend that you do not drive, make important decision, drink alcoholic beverages, or take any drugs that were not prescribed by your health care provider for at least 24 hours after your discharge time. Follow any additional instructions given to you from your surgeon. If you or anyone in your household have experienced Covid symptoms in the past week, please notify your surgeon or the nurse liaison at the phone number below for possible testing. VERBAL AND WRITTEN instructions given to _PATIENT and asked if any additional questions and then verbalized understanding. Patient advised to call surgeon office or pre surgery nurse liaison [phone] if any additional questions.
[2022-08-14 14:30] VITALS: BP 168/93; PULSE 91; RESP 18; TEMP 36.6; O2SAT 97
[2023-01-24 15:05] VITALS: BMI 31.2
--- NOTE | 2023-01-24 15:14 | PC.NURSE ---
PRE-OP INSTRUCTIONS, PLEASE READ CAREFULLY Report to the Outpatient Waiting Room, entrance under the green pavilion located off [facility], at time _1000_ on date _02/03/23_. Planned Procedure Time: _1200_. Time changes happen often and if your time is changed the preop area will call you the afternoon before. - You and your visitor will be asked to self-screen and do not enter if you have any COVID symptoms. - A mask is optional within the hospital at this time. -VISITING HOURS 8AM-8PM Patients may have clear liquids (water, carbonated beverages, clear teas, apple juice) until 3 hours prior to surgery (0900 AM) with a maximum of 20 ounces. - No food from midnight until time of surgery Take the following medications with a SIP of water the morning of surgery: _LEVOTHYROXINE, EYE DROPS_ DO NOT STOP ANY OF YOUR OTHER PRESCRIPTION MEDICATIONS PRIOR TO SURGERY ?EXCEPT THE FOLLOWING Medications to discontinue per ANESTHESIA - _MULTIVITAMIN 3 DAY PRIOR TO SURGERY, Date to take last dose 01/30/23_ Please no make-up, nail pakistani, hairspray, perfume, deodorant, or body powder the day of surgery. No jewelry (including any body piercings) or valuables the day of surgery, leave them at home. Please take a shower or bath the night before, or the morning of, surgery with an antibacterial soap. Wear comfortable, loose fitting clothing. - Jewelry must be removed prior to entering the operating room. Rings and piercings that are not removed may be cut off. - The hospital will not accept responsibility for valuables. - Please leave all valuables, including medications, at home the day of surgery. If you are going home after surgery, a licensed van driver helper must drive you home. - NO public transportation without another adult if you receive anesthesia. - We recommend that an adult stay with you for 24 hours following discharge. - We also recommend that you do not drive, make important decision, drink alcoholic beverages, or take any drugs that were not prescribed by your health care provider for at least 24 hours after your discharge time. Follow any additional instructions given to you from your surgeon. If you or anyone in your household have experienced Covid symptoms in the past week, please notify your surgeon or the nurse liaison at the phone number below for possible testing. Telephone instructions given to _PATIENT_and asked if any additional questions and then verbalized understanding. Patient advised to call surgeon office or pre surgery nurse liaison [phone] if any additional questions.
[2023-02-03] VITALS (10 sets, daily range): BP systolic 107–159; BP diastolic 57–97; PULSE 87–106; RESP 14–24; TEMP 36.6–36.9; O2SAT 92–98
--- NOTE | ~2023-02-03 | XR_ITS ---
EXAMINATION: XR shoulder RT min 2V DATE: 02/03/2023 15:43 INDICATION: Status post right total shoulder arthroplasty TECHNIQUE: AP and transscapular Y views of the right shoulder were obtained. COMPARISON: CT dated 06/17/2022 FINDINGS: Right total shoulder arthroplasty which appears in near anatomic alignment. No fracture. Mild acromio clavicular osteoarthritis. Expected small amount of soft tissue gas at the operative bed. Mild streak y right basilar atelectasis. IMPRESSION: Right total shoulder arthroplasty in near-anatomic alignment, negative for postoperative purposes. Reviewed, dictated and finalized at location A. IMPRESSION: Right total shoulder arthroplasty in near-anatomic alignment, negative for post operative purposes.
--- NOTE | 2023-02-03 10:06 | WPDANESEPPF ---
Anes - Initial Pre Proc Eval Procedure: Operation Date: 02/03/23 12:00 Proposed Procedures p Right Anatomic Total Shoulder Arthroplasty - Marky Dorsey MD Date/Time: 02/03/23 10:06 Surgeon: Marky Dorsey MD Pre Op Diagnosis: right shoulde oa Patient Data Age: 67 Gender: F Height: 1.66 m Weight: 86.5 kg Last Vital Signs Temp 36.6 C 08/14/22 14:30 Pulse 91 08/14/22 14:30 Resp 18 08/14/22 14:30 BP 168/93 H 08/14/22 14:30 Pulse Ox 97 08/14/22 14:30 O2 Del Method Room Air 08/14/22 14:30 Allergies Allergy/AdvReac Type Severity Reaction Status Date / Time oxycodone Allergy Severe Nausea and Verified 02/03/23 11:08 Vomiting tramadol Allergy Severe itching Verified 02/03/23 11:08 Home Medications Medication Instructions Recorded Confirmed Type calcium 600 mg capsule 600 mg PO DAILY 10/10/20 02/03/23 History cholecalciferol (vitamin D3) 25 25 mcg PO BID 10/10/20 02/03/23 History mcg (1,000 unit) tablet multivitamin 1 tablet PO DAILY 10/10/20 02/03/23 History latanoprost 0.005 % eye drops 1 drp EACH EYE HS 10/12/20 02/03/23 History timolol maleate 0.5 % eye drops 1 drp EACH EYE QAM 08/14/22 02/03/23 History losartan 100 mg tablet See Rx Instructions .Route 08/21/22 02/03/23 Rx .COMPLEX #90 tabs levothyroxine 88 mcg tablet See Rx Instructions .Route 10/28/22 02/03/23 Rx .COMPLEX #90 tabs brimonidine 0.2 % eye drops 1 drp BID 01/24/23 02/03/23 History amlodipine 10 mg tablet 10 mg PO HS 02/03/23 02/03/23 History Patient hx anesthesia problems: none Family hx anesthesia problems: none Results Review: All pre-operative results and documents have been reviewed as part of the pre-operative evaluation. [facility] Past Medical History Medical History Allergies Arthritis Essential (primary) hypertension Hypothyroidism (acquired) Surgical History Surgical History History of left hip replacement anterior approach October 23, 2020 History of root canal procedure 2020 for dental abscess Family History Family History Father Family history of cardiovascular disease Cerebrovascular accident Family history of glaucoma Family history of elevated blood lipids Mother Family history of dementia Family history of glaucoma Family history of rheumatoid arthritis Family history of Alzheimer's disease Sibling Family history of malignant neoplasm Social History Social History Smoking packs per day: 0.5 Smoking cigarettes per day: 10.0 Years smoked: 9 Smoking pack-years: 4.50 Smoking status: Former smoker Tobacco type: cigarettes Second hand tobacco smoke exposure: No Smoking end date: 10/13/79 Alcohol intake: current Drinks per week: 2 Alcohol use details: wine Substance use: never Substance use type: does not use Lack of Transportation: No Lack of Food: Never True Current Housing: I Have Housing Concerned About Future Housing: No Difficulty Paying Gas/Electric Bills: No Difficulty Paying for Meds: No Currently Unemployed: No Education: Bachelor's Degree Difficulty w/ Childcare or Family Care: No Living arrangements: alone Gender identity (if verbalized by the patient): Female Sexual Orientation (if Verbalized by the Patient): Straight or Heterosexual Spiritual care concerns: No Anes - Eval Final PreProcedure Day of Procedure 02/03/23 10:06 Patient weight: obese Heart: regular rate and rhythm Lungs: clear to auscultation Airway: Mallampati scale class II Neurological: alert and oriented Last oral intake: >/= 8 hours ASA classification: III Emergent: no Anesthetic plan: proceed Anesthesia type and monitoring: general ETT and standard monitoring Results R
[2023-02-03] MEDS: LACTATED RINGERS 1,000 ML 30 ML IV CONT ×2 (10:51→15:29)
[2023-02-03] MEDS: TRANEXAMIC ACID 1,000MG/ISO100 1,000 MG/100 ML BAG 200 MG IVPB (10:51)
[2023-02-03] MEDS: ACETAMINOPHEN 500 MG TABLET 1000 MG PO ×2 (10:51→20:13)
--- NOTE | 2023-02-03 11:58 | WPDHPUPDATE1 ---
History and Physical Update Update Date/Time: 02/03/23 11:58 History and Physical has been reviewed, including an updated exam of the patient. There are NO changes in the patient's condition. Risks, benefits, and alternatives have been discussed and questions answered. Patient agrees to proceed with procedure.
--- NOTE | 2023-02-03 12:12 | SUR.OPER ---
Contacted MD regarding the Draft status of the H&P Update (Not Signed ). Given the O.K. to take patient back with the H&P in draft status per MD.
--- NOTE | 2023-02-03 12:15 | WPDANESPNB ---
Anes - Peripheral Nerve Block Date/Time: 02/03/23 12:15 I have discussed with the patient/family/POA the placement of a peripheral nerve block for post-operative pain management, including associated risks, benefits, complications, and side effects. Alternative methods of post-operative analgesia were detailed. Questions were solicited and answers provided to the satisfaction of the patient/family/POA. Time-Out: A pre-procedural Time-Out was completed immediately before starting the procedure and confirmed: Patient Identification, Site, Procedure, Patient Position and the Availability of Requisite Equipment. Clinical Indications: Acute post-operative pain management requested by the operative surgeon. Nerve Block Insertion Note Anes-nerve block: interscalene right Patient position: supine Skin prep: chlorhexidine Needle: 22 gauge, stimulating, insulated echogenic needle. Needle length: 50 mm Technique: ultrasound Injectate: bupivacaine 0.5% with epi 5 mcg/ml (30cc- no epi) Observations: tolerated well Complications: none Procedure start time:: 1207 Procedure end time:: 1211
[2023-02-03] MEDS: ceFAZolin 2 GM/D5W 50 ML 2 GM/50 ML BAG IVPB ×2 (12:20→17:32)
[2023-02-03] MEDS: VANCOMYCIN HCL 1,000 MG VIAL 1000 MG TOPICAL (15:00)
--- NOTE | 2023-02-03 16:24 | W.PM.PROC2 ---
Procedure Note - Detailed Date of Procedure 02/03/23 Pre-op Diagnosis Right shoulder osteoarthritis. Post-op Diagnosis Same Procedure Performed Right anatomic total shoulder arthroplasty Surgeon Marky Dorsey MD Sheet Music Salesperson Chantel Thayer PA-C Anesthesia General and Regional (Interscalene block.) Findings Good bone quality. Severe disease with moderate to severe proliferative synovitis. Multiple loose bodies in the biceps sheath were removed. Extensive osteophytes along the humeral head and posterior glenoid removed. Approximately 5-10 degree anterior version correction. Description of Procedure The patient was given an interscalene block in the preoperative area. Preoperative antibiotics were given. The patient was transferred to the operating room and a general anesthetic was administered. The beach chair position was used at 35 degrees. All bony prominences were padded. The head was carefully stabilized on the [place] head end desizing machine operator. A sterile prep and drape was performed in the usual manner with Chloraprep. A longitudinal incision was created at the anterior shoulder just lateral to the deltopectoral interval. Careful dissection was performed to expose the interval and protect the cephalic vein. The vein was retracted medially. The upper border of the pectoralis was released. Anterior circumflex vessel branches were suture ligated. The biceps was tenodesed. A small lesser tuberosity osteotomy was performed after opening the joint capsule at the rotator interval. The inferior capsule was released, exposing the humeral head. Osteophytes were removed. Care was taken to stay on bone to protect the axillary nerve. A Fukuda was placed in the joint. The subscapularis was mobilized, the inferior capsule and long head of triceps released, and the superior and middle glenohumeral ligaments released as well. Attention was turned to the humerus again. The anatomic head cut was taken with the oscillating saw. Sounding and broaching was performed. The neck anteversion and inclination were carefully assessed. Head sizing and offset were determined. The cut protector was placed, and attention was turned to the glenoid. Retractors were placed. Releases were carried out for exposure. Labral tissue was resected. The sizing template was used and a guide pin was placed. 5? of deformity correction was performed. The reamer was placed over the guide pin taken down to create a 2-3 millimeter minimal wall. The peg drill guide was applied and the pegs drilled. The trial component was placed and fit very nicely. Excellent stability was confirmed. The real component was cemented into position. Excess cement was carefully removed. The humerus was prepared for subscapularis repair with the drilling and passage of 3 suture leaders. The real humeral stem and head were impacted into position. The shoulder was copiously irrigated periodically with pulsatile lavage. The shoulder was reduced and the subscapularis repaired with number 5 Ethibond suture modified Donte-Fred sutures, and reinforced with multiple number 2 Ethibond suture. The rotator interval was reapproximated laterally. The biceps tenodesis was incorporated with the pectoralis tendon repair using 5. Ethibond suture. The deltopectoral space was reapproximated with 2-0 Vicryl. The remaining tissue was closed with 0 Quill and 2-0 Quill running suture and steri-strips. A sterile dressing and shoulder immobilizer was placed. The patient was transferred to the recovery room. Physician assistant professor of geography, Chantel Thayer PA-C, required for surgery; including patient positioning, draping, tissue retraction, maintaining instrument position, cement removal, wound closure, and dressing placement. Implants Shoulder Innovations Inset Shoulder System; humeral short stem size 0. Offset Humeral Head 40mm, Glenoid Circular In Line Peg 20 x 6mm. Depuy CMW 2 (quick set) Gentamicin Bone Cement 20 g. Estimated Blood Loss -100.0 Drains N
--- NOTE | 2023-02-03 16:37 | ADMGEN ---
This patient, Rosetta Christiansen, was admitted to Medical Room 340-01. Patient/family oriented to hospital policies and general routines including ID bracelet, bed and alarms, visiting hours, pain management, procedures, bathroom and other care routines, personal items, smoking policy, room service/diet, and visiting hours. Information on how to activate the Rapid Response Team has been discussed. Patient/Family are encouraged to report perceived risks to care and to ask questions if they do not understand what they are told or what they should do.
[2023-02-03] MEDS: SODIUM CHLORIDE 0.9% IV 1,000 ML 125 ML IV CONT (17:32)
[2023-02-03] MEDS: IBUPROFEN 600 MG TABLET PO (18:45)
[2023-02-03] MEDS: SENNA/DOCUSATE SODIUM TABLET 2 TAB PO (18:45)
[2023-02-03] MEDS: ASPIRIN 81 MG ENTERIC TABLET PO (18:45)
[2023-02-03] MEDS: amLODIPine BESYLATE 5 MG TABLET 10 MG PO (20:13)
[2023-02-03] MEDS: FAMOTIDINE 20 MG TABLET PO (20:13)
[2023-02-04] MEDS: IBUPROFEN 600 MG TABLET PO ×3 (00:47→11:18)
[2023-02-04] MEDS: ceFAZolin 2 GM/D5W 50 ML 2 GM/50 ML BAG IVPB ×2 (00:47→10:43)
[2023-02-04 02:13] VITALS: BP 120/80; PULSE 85; RESP 18; TEMP 36.3; O2SAT 95
[2023-02-04 04:48] VITALS: BP 129/75; PULSE 88; RESP 18; TEMP 36.4; O2SAT 96
[2023-02-04] MEDS: LEVOTHYROXINE SODIUM 88 MCG TABLET PO (05:32)
[2023-02-04 05:58] LABS: Basophils Percent Auto 0.2 % (0.2-1.2); Hemoglobin 13.9 g/dL (12.0-15.0); Immature Granulocyte Absolute 0.06 K/mm3 (0.00-0.031); Immature Granulocyte Percent A 0.5 % (0-0.5); Lymphocytes Absolute Auto 1.51 K/mm3 (0.9-3.2); Lymphocytes Percent Auto 12.4 % (18.3-44.2); Mean Corpuscular HGB Conc 33.1 g/dl (32-36); Mean Corpuscular Hemoglobin 31.3 pg (26-34); Mean Corpuscular Volume 94.6 fl (80-100); Mean Platelet Volume 8.7 fl (7.4-10.4); Monocytes Absolute Auto 1.2 K/mm3 (0.1-0.6); Monocytes Percent Auto 10.1 % (2.6-8.5); Neutrophils Absolute Auto 9.3 K/mm3 (1.3-6.7); Neutrophils Percent Auto 76.8 % (45.5-73.1); Platelet Count Result 354 k/mm3 (150-375); Red Blood Count 4.44 M/mm3 (4.2-5.4); Red Cell Distribution Width 12.8 % (11.5-14.5); White Blood Count 12.2 K/mm3 (4.5-10.0)
[2023-02-04 06:19] LABS: Anion Gap 8 mmol/L (8-16); Blood Urea Nitrogen 11 mg/dL (7-17); Calcium 9.3 mg/dL (8.4-10.2); Carbon Dioxide 25 mmol/L (22-30); Chloride 99 mmol/L (98-107); Estimated CRCL calculation 84 ml/min; Estimated Glomerular Filt Rate > 60; Glucose 128 mg/dL (65-110); Potassium 3.5 mmol/L (3.4-5.0); Sodium 132 mmol/L (137-145)
[2023-02-04] MEDS: ASPIRIN 81 MG ENTERIC TABLET PO (08:28)
[2023-02-04] MEDS: LOSARTAN POTASSIUM 100 MG TABLET PO (08:29)
[2023-02-04] MEDS: SENNA/DOCUSATE SODIUM TABLET 2 TAB PO (08:29)
[2023-02-04 09:32] VITALS: BP 64/39; PULSE 61; O2SAT 98
[2023-02-04 09:36] VITALS: BP 101/76; PULSE 73; O2SAT 97
[2023-02-04 09:38] LABS: Glucose Point of Care 150 mg/dl (65-105)
--- NOTE | 2023-02-04 13:20 | PM.DS ---
DS: Admitting Diagnosis Discharge Date 02/04/23 Admitting Diagnosis Glenohumeral joint arthritis DS: Discharge Diagnosis Discharge Diagnosis (1) Status post total replacement of right shoulder: Code(s): Z96.611 - Presence of right artificial shoulder joint Status: Acute (2) Orthopedic aftercare for joint replacement: Code(s): Z47.1 - Aftercare following joint replacement surgery Status: Acute Plan Postop day 1: Anatomic total shoulder Patient tolerated procedure well. She did have a vasovagal syncopal episode today during formal physical therapy. Her vitals have stabilized and she is feeling much better. She is eager to return home today. Second therapy session went well and she did not have another episode. Pain manageable with pain medication. No numbness or tingling. We had a lengthy discussion regarding postoperative wound care, limitations, expectations, and exercises. Patient shows good understanding. Patient has followup appointment with Dr. Dorsey in 3 weeks. DS: Summary Hospital Course Hospital Course: Right anatomic total shoulder arthroplasty. No complications. Patient has had initial physical therapy and occupational therapy. Status at Discharge Functional status at discharge: independent ambulation Overall status at discharge: patient is progressing back to baseline Time Spent with Patient Time attestation: Total time spent providing and/or coordinating discharge services: Exam Narrative: Overweight Female. Alert and oriented x3. No acute distress. Resting comfortably in chair. Wearing sling. Dressing dry and intact with no drainage. Mild swelling. Mild ecchymosis. No erythema. Range of motion limited due to pain. Good finger, wrist, elbow range of motion. Neurologic status intact. Light touch sensation intact. Normal capillary refill. No varicosities. Distal pulses palpable. DS: Data Data Completed and Pending Labs on day of discharge: Labs from last 24 hours 02/04/23 02/04/23 09:32 05:39 WBC 12.2 H RBC 4.44 Hgb 13.9 Hct 42.0 MCV 94.6 MCH 31.3 MCHC 33.1 RDW 12.8 Plt Count 354 MPV 8.7 Immature Gran % (Auto) 0.5 Neut % (Auto) 76.8 H Lymph % (Auto) 12.4 L [place] % (Auto) 10.1 H Eos % (Auto) 0.0 Baso % (Auto) 0.2 Lymph # (Auto) 1.51 [place] # (Auto) 1.2 H Eos # (Auto) 0.0 Baso # (Auto) 0.0 Abs Immat Gran (auto) 0.06 H Absolute Neuts (auto) 9.3 H Absolute Nucleated RBC 0.0 Nucleated RBC % 0.0 Sodium 132 L Potassium 3.5 Chloride 99 Carbon Dioxide 25 Anion Gap 8 BUN 11 Creatinine 0.60 L Estim Creat Clear Calc 84 Estimated GFR > 60 Glucose 128 H POC Capillary Glucose 150 H Calcium 9.3 Discharge Plan Discharge Patient Disposition: Home, Self-Care Discharge Instructions: See green instruction sheets. Stand Alone Forms: General Discharge Instructions Follow-up/Referrals: Chantel Thayer PA [Physician Locksmith Apprentice] - Discharge Medications: New aspirin 81 mg tablet,delayed release (DR/EC) 81 mg PO BID 14 Days Qty: 28 0RF Continued latanoprost 0.005 % drops 1 drp EACH EYE HS multivitamin Tablet 1 tablet PO DAILY calcium 600 mg Capsule 600 mg PO DAILY cholecalciferol (vitamin D3) 25 mcg (1,000 unit) Tablet 25 mcg PO BID timolol maleate 0.5 % drops 1 drp EACH EYE QAM brimonidine 0.2 % drops 1 drp BID Rx Instructions: EACH EYE amlodipine 10 mg tablet 10 mg PO HS losartan 100 mg tablet See Rx Instructions .ROUTE .COMPLEX Qty: 90 1RF Dose Instruction: TAKE 1 TABLET BY MOUTH EVERY DAY Patient Comments: TAKES AT HS Rx Instructions: TAKE 1 TABLET BY MOUTH EVERY DAY levothyroxine 88 mcg tablet See Rx Instructions .ROUTE .COMPLEX Qty: 90 1RF Dose Instruction: TAKE 1 TABLET BY MOUTH EVERY DAY Rx Instructions: TAKE 1 TABLET BY MOUTH E
[2023-02-04 13:42] VITALS: BP 156/95; PULSE 97; RESP 18; TEMP 36.7; O2SAT 97
--- NOTE | 2023-02-07 13:34 | PM.IMHP ---
H&P: HPI History of Present Illness Date/Time: 02/07/23 13:34 Chief Complaint: Shoulder pain Details: Pre-op note: Pleasant 67-year-old active female complains of persistent shoulder pain. Patient has received clearance from her primary care provider. Examination Unchanged. Healthy. 67 y/o female.? No distress.? Mild swelling at the shoulder.? Tenderness at the joint line.? Motion is quite limited.? Marked painful crepitus.? painful active elevation to 130?.? External rotation 20?.? Internal rotation to the hip.? Distal neurovascular status intact. Diagnostics Radiographs show advanced glenohumeral arthritis with complete loss of joint space.? Large inferior spur at the humeral head.? Mild posterior subluxation.? Some collapse of the humeral head. Impression Advanced glenohumeral arthritis of the right shoulder.? She has failed extensive conservative treatment with therapy and anti-inflammatories.? The pain has become unbearable.? The bony changes are quite significant as well as significant stiffness.? She would be a good candidate for total shoulder arthroplasty (with reverse available). Patient has received clearance for surgery from her primary care provider. Reviewed note. I had a lengthy discussion with the patient. Risks, benefits, and alternatives discussed. Reviewed post operative expectations and exercises. Reviewed wound care postoperatively. Patient shows good understanding. Patient does not tolerate pain medication. Will use ibuprofen and Tylenol for pain control. Proceed with anatomic total shoulder arthroplasty. [facility] Past Medical History Medical History Allergies Arthritis Essential (primary) hypertension Hypothyroidism (acquired) Surgical History Surgical History History of left hip replacement anterior approach October 23, 2020 History of root canal procedure 2020 for dental abscess Family History Family History Father Family history of cardiovascular disease Cerebrovascular accident Family history of glaucoma Family history of elevated blood lipids Mother Family history of dementia Family history of glaucoma Family history of rheumatoid arthritis Family history of Alzheimer's disease Sibling Family history of malignant neoplasm Social History Social History Smoking packs per day: 0.5 Smoking cigarettes per day: 10.0 Years smoked: 9 Smoking pack-years: 4.50 Smoking status: Former smoker Second hand tobacco smoke exposure: No Alcohol intake: current Drinks per week: 2 Alcohol use details: wine Substance use: never Substance use type: does not use Lack of Transportation: No Lack of Food: Never True Current Housing: I Have Housing Concerned About Future Housing: No Difficulty Paying Gas/Electric Bills: No Difficulty Paying for Meds: No Currently Unemployed: No Education: Bachelor's Degree Difficulty w/ Childcare or Family Care: No Living arrangements: alone Gender identity (if verbalized by the patient): Female Sexual Orientation (if Verbalized by the Patient): Straight or Heterosexual Spiritual care concerns: No Meds Home Medications and Allergies Home Medications Medication Instructions Recorded Confirmed Type calcium 600 mg capsule 600 mg PO DAILY 10/10/20 02/03/23 History cholecalciferol (vitamin D3) 25 25 mcg PO BID 10/10/20 02/03/23 History mcg (1,000 unit) tablet multivitamin 1 tablet PO DAILY 10/10/20 02/03/23 History latanoprost 0.005 % eye drops 1 drp EACH EYE HS 10/12/20 02/03/23 History timolol maleate 0.5 % eye drops 1 drp EACH EYE QAM 08/14/22 02/03/23 History losartan 100 mg tablet See Rx Instructions .Route 08/21/22 02/03/23 Rx .COMPLEX #90 tabs levothyroxine 88 mcg tablet See
== END 2023-02-04 14:00 | disposition home or self-care (01) ==
LOC: ANHSURGERY 15:35 → ANH3MED 16:37
PROVIDERS: Physician Assistant Surgical; PCP Internal Medicine; Visit Provider Orthopaedic Surgery
PROC: (CPT 23472; principal; 2023-02-03 12:00)
DX: M19.011 Primary osteoarthritis, right shoulder (principal); M65.811 Other synovitis and tenosynovitis, right shoulder; I10 Essential (primary) hypertension; E03.9 Hypothyroidism, unspecified; Z87.891 Personal history of nicotine dependence; E66.9 Obesity, unspecified; Z68.30 Body mass index [BMI] 30.0-30.9, adult; G89.18 Other acute postprocedural pain; Z96.611 Presence of right artificial shoulder joint; Z79.899 Other long term (current) drug therapy
CPT/HCPCS: 64415; 23472; 36415; 73030; 80048; 82948; 85025; 97110; 97161; 97165; 97530; 97535; A4565; A9270; C1713; C1776; J0171; J0690; J1100; J1170; J1200; J1885; J2250; J2405; J2704; J2795; J3010; J3370; J7030; J7120

== ENCOUNTER 2024-02-04 12:43 | Outpatient (CLI) | payer MEDICARE, SELFPAY ==
--- NOTE | ~2024-02-04 | XR_ITS ---
XR shoulder RT min 2V 02/04/2024 13:02 Indication: Right shoulder arthroplasty follow-up Procedure: 4 views right shoulder Comparison: Comparison to multiple prior studies sequentially, with oldest reviewed study dated 02/12. Findings: There is a right shoulder arthroplasty in anatomic alignment. Prosthesis well seated. No fr acture or traumatic malalignment. No significant soft tissue abnormality. No foreign bodies. Impression: 1: Right shoulder arthroplasty in anatomic alignment. No significant interval change. Reviewed, dictated and finalized at location B. Impression: 1: Right shoulder arthroplasty in anatomic alignment. No significant interval c mele.
== END 2024-02-04 12:44 | disposition home or self-care (01) ==
LOC: ANHIMG 12:47
PROVIDERS: PCP Internal Medicine; Visit Provider Orthopaedic Surgery
DX: Z96.611 Presence of right artificial shoulder joint (principal)
CPT/HCPCS: 73030

== ENCOUNTER 2024-03-16 15:17 | Outpatient (CLI) | payer MEDICARE, SELFPAY ==
--- NOTE | ~2024-03-16 | MM_ITS ---
EXAMINATION: MM screening matheus BI w nicolette HISTORY: Screening TECHNIQUE: Craniocaudal and mediolateral oblique 3-D tomosynthesis images were obtained and synthetic 2-D images were generated. CAD analysis was submitted and interpreted. COMPARISON: Comparison to multiple prior studies sequentially, with oldest reviewed study dated 01/12. BREAST PARENCHYMAL COMPOSITION: Not dense: There are scattered areas of fibroglandular density. FINDINGS: There is no evidence of suspicious mass, calcification, or architectural distortion to sugg est malignancy in either breast. There has been no suspicious interval change. IMPRESSION: 1. No mammographic evidence of malignancy. 2. Recommend routine screening mammography in one year. BI-RADS Category 1: Negative Reviewed, dictated and finalized at location B. [employer]
== END 2024-03-16 15:18 | disposition home or self-care (01) ==
LOC: MICIMG 15:17
PROVIDERS: PCP Nurse Practitioner; Visit Provider Nurse Practitioner
DX: Z12.31 Encounter for screening mammogram for malignant neoplasm of breast (principal)
CPT/HCPCS: 77063; 77067

== ENCOUNTER 2024-11-08 13:56 | Outpatient (CLI) | payer MEDICARE, SELFPAY ==
--- NOTE | ~2024-11-08 | DEXA_ITS ---
Bone Density Report Name: NILE ZAMUDIO I Age: 69 Sex: Female Ethnicity: White Date of : 1955 Indication: postmenopausal; screening for osteoporosis; Referring Provider: JAMIE LYNN Study: Bone densitometry was performed. Exam Date: November 08, 2024 Accession number: [id number] Bone Density: Region BMD T-score Z-score Classification AP Spine(L1-L4) 0.896 -1.4 0.7 Osteopenia Femoral Neck (Right) 0.717 -1.2 0.6 Osteopenia Total Hip (Right) 0.826 -1.0 0.5 Normal World Health Organization criteria for BMD impression classify patients as: Normal (T-score at or above -1.0), Osteopenia (T-score between -1.0 and -2.5), or Osteoporosis (T-score at or below -2.5). 10-year Fracture Risk(1): Major Osteoporotic Fracture 8.5% Hip Fracture 0.9% Reported Risk Factors: [place] (), Neck BMD=0.717, BMI=34.3 (1) FRAX(R) Version 3.08. Fracture probability calculated for an untreated patient. Fracture probability may be lower if the patient has received treatment. Clinical Information Provided by Patient: Has used the following medications: Vitamin D, Calcium Patient maximum height was 65.5 Menopause Age: 55 No regular weight bearing exercise Does not regularly consume dairy products Drinks caffeinated beverages Onset of menses at age 12 Number of children 2 Missed period for more than 6 months in a row Impression: The patient has low bone mass, based on the Total Spine T-score. The patient has an estimated ten-year risk of hip fracture of 0.9% and an estimated ten-year risk of major fracture of 8.5%, based on the WHO FRAX algorithm. Discussion: BONE DENSITY IS LOW AT ONE OR MORE SKELETAL SITES. This patient's lowest T-score is low at one or more skeletal sites. It meets the World Health Organization's (WHO) criteria for ?low bone mass? (T-score between -1.0 and -2.5). The patient's 10-year risk of fracture as calculated by FRAX is less than the threshold where pharmacological therapy is recommended by the National Osteoporosis Foundation (NOF). However, all treatment decisions require clinical judgment and consideration of individual patient factors, including patient preferences, comorbidities, previous drug use, risk factors not captured in the FRAX model (e.g., frailty, falls, vitamin D deficiency, increased bone turnover, interval significant decline in bone density) and possible under or overestimation of fracture risk by FRAX. The patient should follow a healthful lifestyle (good nutrition with adequate calcium and vitamin D, and appropriate weight-bearing exercise). Follow-Up: Consider repeating this study in 2 to 3 years to reassess this patient's status, or sooner if there is some new clinical indication. Reported by: MICHAEL on 11/08/2024 2:35:00 PM. Reviewed, dictated and finalized at location A.
--- OUTSIDE RECORDS SUMMARY | 2024-11-08 14:03 | XMS_ITS | Clinical Summary ---
Author Organization [facility] Address [address] [address] Care Team Providers Care Recreation Manager Name Role Phone Fariba Dhillon MD Primary Care Provider [phone] Source Comments [facility],non-owned Affiliates and Associated Physician Practices is amultiple site organization consisting of ambulatory clinics and hospital sitesin [place], [place], [place] and [place]. This disclosure is being madepursuant to the Care Everywhere program and may not contain all information available regarding this patient. Last updated 18.[facility] Allergies No known active allergies Medications * Be aware that medications may not be up to date on this document. Alwaysverify current medications with the patient. thyroid (ARMOUR THYROID) 60 MG tablet Take 60 mg by mouth once daily. Active oxycodone-acetam inophen (PERCOCET) 5-325 MG tablet Take 1 Tab by mouth every 4 hours as needed. 30 Tab 0 02/07/2012 Active ibuprofen (MOTRIN) 600 MG tablet Take 1 Tab by mouth every 6 hours as needed. 60 Tab 0 02/07/2012 Active docusate sodium (COLACE) 100 MG capsule Take 1 Cap by mouth 2 times daily. 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 Gender Identity Not on file Sexual Orientation Not on file Last Filed Vital Signs Vital Sign Reading Time Taken Comments Blood Pressure 121/74 02/07/2012 1:43 PM CDT Pulse 72 02/07/2012 1:43 PM CDT Temperature 36.9 C (98.5 F) 02/07/2012 1:43 PM CDT Respiratory Rate 18 02/07/2012 1:43 PM CDT Oxygen Saturation 95% 02/07/2012 1:43 PM CDT Inhaled Oxygen Concentration - - Weight 77.1 kg (170 lb) 02/06/2012 10:15 AM CDT Height 165.1 cm (5' 5) 02/06/2012 10:15 AM CDT Body Mass Index 28.29 02/06/2012 10:15 AM CDT Plan of Treatment Health Maintenance Due Date Last Done Comments BONE DENSITY TESTING 1955 COLOGUARD (AGES 45-75) - COL ON CA SCREENING 1955 COLON MONITORING 1955 COLONOSCOPY - COLON CA SCREENING 1955 CT COLONOGRAPHY - COLON CA SCREENING 1955 Colorectal Cancer Screening 1955 FIT - COLON CA SCREENING 1955 FLEX SIG - COLON CA SCREENING 1955 LIPID TESTING 1955 MAMMOGRAM 1955 HEPATITIS C SCREENING 05/21/1973 DTAP/TDAP/TD VACCINES (1 - Tdap) 1974 PNEUMOCOCCAL VACCINE 50+ (1 of 1 - PCV) 2005 ZOSTER VACCINE (1 of 2) 2005 COVID-19 VACCINE (1 - 2023-2 5 season) 2023 DEPRESSION SCREENING 04/14/2024 INFLUENZA VACCINE (#1) 2024 Respiratory Syncytial Virus (RSV) Vaccine Pt: or over 60 yrs (1 - 1-dose 75+ series) 2030 HEPATITIS B VACCINE Aged Out No longe r eligible based on patient's age to complete this topic HIB VACCINE Aged Out No longer eligi ble based on patient's age to complete this topic HPV VACCINE Aged Out No longer eligi ble based on patient's age to complete this topic MENINGOCOCCAL (Group B) VACC INE SHARED DECISION-MAKING Aged Out No longer eligibl e based on patient's age to complete this topic MENINGOCOCCAL GROUPS A/C/Y/W VACCINE Aged Out No longer eligible b ased on patient's age to complete this topic Insurance MEDICARE Advance Directives * FULL RESUSCITATION (Latest Code Status on File) Date Activated Date Inactivated Comments 02/06/2012 2:32 PM 02/07/2012 3:18 PM Care Teams Recreation Manager Relationship Specialty Start Date End Date Fariba Dhillon MD [address] [place] [id number] PCP - General 01/28/12
== END 2024-11-08 13:57 | disposition home or self-care (01) ==
LOC: ANHIMG 13:57
PROVIDERS: PCP Internal Medicine; Visit Provider Nurse Practitioner
DX: M85.89 Other specified disorders of bone density and structure, multiple sites (principal); Z78.0 Asymptomatic menopausal state
CPT/HCPCS: 77080